=== PATIENT | male | born 1945 | race Caucasian/White ===

== ENCOUNTER 2018-05-18 20:41 | Emergency (ER) | payer MEDICARE ==
[~2018-05-18] VITALS: Ht 170.2 cm; Wt 81.6 kg
[2018-05-18 20:49] VITALS: BP_SYST 136
[2018-05-18 23:45] VITALS: BP_SYST 136
== END 2018-05-18 23:45 | disposition home or self-care (01) ==
LOC: SED 20:41
DX: K91.840 Postprocedural hemorrhage of a digestive system organ or structure following a digestive system procedure (principal)
CPT/HCPCS: 99281; 99282